=== PATIENT | female | born 1995 | race African-American/Black ===

== ENCOUNTER 2017-08-16 22:13 | Emergency (ER) | payer OTHER ==
[2017-08-16 22:51] VITALS: BP 110/75
== END 2017-08-17 02:05 | disposition admitted as inpatient to this hospital (09) ==
LOC: ERH 22:13
DX: T78.49XA Other allergy, initial encounter (principal)

== ENCOUNTER 2017-11-02 17:56 | Inpatient (IN) | payer OTHER ==
[~2017-11-02] VITALS: Ht 172.7 cm; Wt 97.5 kg
[2017-11-02 19:02] LABS: ABSOLUTE BASOPHIL COUNT 0 /CUMM (0.0-0.2); ABSOLUTE EOSINOPHIL COUNT 0 /CUMM (0.0-0.7); ABSOLUTE GRANULOCYTE CT 5.7 /CUMM (1.4-6.5); ABSOLUTE LYMPH COUNT 1.6 /CUMM (1.2-3.4); ABSOLUTE MONOCYTE COUNT 1.4 /CUMM (0.10-0.60); BASOPHIL % 0.2 % (0.0-2.0); EOSINOPHIL % 0.4 % (0-5); GRANULOCYTE % 65.3 % (42.2-75.2); MEAN CORPUSCULAR HGB 26.4 PG (27.0-31.0); MEAN CORPUSCULAR VOLUME 82.4 FL (81.0-99.0); MEAN PLATELET VOLUME 11.1 FL (7.4-10.4); PLATELET COUNT 146 /CUMM (130-400); RBC DISTRIBUTION WIDTH 13.8 % (11.5-14.5); RED BLOOD CELL CT 5.21 /CUMM (4.20-5.40); WHITE BLOOD CELL COUNT 8.8 /CUMM (4.8-10.8)
--- NOTE | 2017-11-02 20:52 | History & Physical ---
General Information and HPI MD Statement: I have seen and personally examined JUNE EVANGELISTA and documented this H&P. The patient is a 21 year old female at 38 weeks and 3 days gestation who presented with a chief complaint of intermittent headaches, visual changes, swelling and decreased movement. Source of Information: patient, old records Exam Limitations: no limitations History of Present Illness: Patient is a 21 year old female with complicated by excess weight gain who contacted the service with complaint of swelling in her hands. On arrival she stated that she didnt feel well today at work. She noted decreased movement and over the past few days intermittent headaches and blurry vision. Allergies/Medications Allergies: Coded Allergies: No Known Allergies (03/13/17) Compliance With Home Meds: GOOD Past History cfd engineer History : 1 Para: 0 Last Menstrual Period: 02/06/2017 Estimated Delivery Date: 11/13/17 Past cfd engineer History: none Medical History Blood Transfusion Hx: No Neurological: NONE EENT: NONE Cardiovascular: NONE Respiratory: NONE Gastrointestinal: NONE Hepatic: NONE Renal: NONE Musculoskeletal: NONE Psychiatric: NONE Endocrine: NONE Blood Disorders: NONE Cancer(s): NONE EDUCATIONAL PSYCHOLOGIST/Reproductive: NONE Other Medical Hx: na Surgical History Pertinent Surgical History: none Past Family/Social History Psychosocial History Where do you live? Home Who Do You Live With? parent Primary Language: Ghanaian Smoking Status: Never Smoked (Partner is smoker) ETOH Use: denies use Illicit Drug Use: denies illicit drug use Living Will? unknown Power of Reel Hooker/HCP? unknown Other Social History: na Employment History Employment Employed Review of Systems Review of Systems Constitutional: Denies: no symptoms. EENTM: Reports: blurred vision. Cardiovascular: Denies: no symptoms. Respiratory: Denies: no symptoms. GI: Denies: no symptoms. Genitourinary: Denies: no symptoms. Musculoskeletal: Denies: no symptoms. Skin: Denies: no symptoms. Neurological/Psychological: Reports: headache. Hematologic/Endocrine: Denies: no symptoms. Immunologic/Allergic: Denies: no symptoms. Date of LMP: 02/06/17 Post Menopausal: No Pap Smear Testing Status: Test never done Exam & Diagnostic Data Last 24 Hrs of Vital Signs/I&O BP range of 125-155/75-90 Obstetric Exam Wgt Gained During : 35 Pelvimetry: Gynecoid Dilation (cm): 1 Effacement (%): 50 Station: -2 Membranes: intact Fluid: Intact membranes Fundal Height (cm): 38 Multiple Gestation? No Contractions: Irregular q5-7 #1 - FHR Baseline: 140 Category: 1 Estimated Weight: 3500 grams Presentation: Cephalic Patient for Induction? Yes Stringer Score Stringer Score Response Value Cervix Position: posterior 0 Cervix Consistency: soft 2 Cervix Effacement: 30-50% 1 Cervix Dilation: 1-2 cm 1 Cervix Station: -2 1 Total 5 Physical Exam General Appearance Alert, Oriented X3, Cooperative, Mild Distress Skin No Rashes HEENT Atraumatic, PERRLA Neck Supple Cardiovascular Regular Rate Lungs Clear to Auscultation, Normal Air Movement Abdomen Normal Bowel Sounds, Soft, No Tenderness Neurological Normal Gait, Normal Speech, Strength at 5/5 X4 Ext, Normal Tone, Sensation Intact, Cranial Nerves 3-12 NL, Reflexes 2+ Extremities No Edema Vascular Pulses Symmetrical Breasts Breast appear nl Reproductive (FEMALE) Normal female genitalia Pelvic (FEMALE) Appearance Normal Labs Blood Type & Rh: O positive Antibody Screen: negative Hct/Hgb & Platelets #1: 37.1 Hct/Hgb & Platelets #2: 40.9/247 Rubella: immune VDRL #1: negative VDRL #2: negative HbsAg: negative HIV #1: negative HIV #2 negative 1 Hr P Group B Strep: Negative Initial Ultrasound: Wnl Anatomy Ultrasound: WNl Ultrasound for EFW: 3374 grams at 37w2d Genetic Testing: Declined testing Last 24 Hrs of Labs/Zac: Laboratory Tests 11/02/171826: Estimated GFR > 60, Uric Acid 4.1, AST 26, ALT 29, Lactate Dehydrogenase 535, CBC w Diff NO MAN DIFF REQ, RBC 5.21, MCV 82.4, MCH 26.4 L, MCHC 32.0 L, RDW 13.8, MPV 11.1 H, Gran % 65.3, Lymphocytes % 18.6 L, Monocytes % 15.5 H, Eosinophils % 0.4, Basophils % 0.2, Absolute Granulocytes 5.7, Absolute Lymphocytes 1.6, Absolute Monocytes 1.4 H, Absolute Eosinophils 0, Absolute Basophils 0 11/02/171824: Ur Random Creatinine 116.9, U Random Total Protein 45 H, Protein/Creatinin Ratio 0.3 H 05/18/18 1825: Urinalysis LIGHT H, Urine Color YEL, Urine Clarity CLEAR, Urine pH 6.0, Ur Specific [place] 1.025, Urine Protein 30 H, Urine Ketones NEG, Urine Nitrite NEG, Urine Bilirubin NEG, Urine Urobilinogen 0.2, Ur Leukocyte Esterase TRACE H , Ur Microscopic SEDIMENT EXAMINED, Urine WBC 3-5 H, Ur Epithelial Cells FEW, Urine Bacteria MANY H, Urine Hemoglobin NEG, Urine Glucose NEG Assessment/Plan Assessment/Plan: Patient is a 21 year old female with gestational hypertension vs mild preeclampsia. Patient with no symptoms of severe preeclampsia at present. Lab tests showing PC ratio of 0.3 and decreased platelets to 146k and hemoconcentration. No focal deficits on physical exam. Catagory 1 tracing and normal maximum vertical pocket on ultrasound of 5.3 cm. Plan Induction of labor secondary to mild preeclampsia. As she is not favorable I placed a cervical uriostegui and will evaluate if misoprostol is needed. Goal for shortening the induction to delivery time. Preeclampsia. I discussed with the patient the symptoms of same and the issues of same. I discussed that if she increases her BP she may need magnesium. If she has symptom return of prior than I will start on magnesium as well. Potential for BP medications up to 12 weeks. Monitor urine output. No findings of abruption at present and intact membranes. Repeat lab tests in am to assess trend of platelets. No LFT abnormalities noted. VTE risk reduction with alps SSI risk reduction with wipes Consent for vaginal obtained. Discussed pain mgmt strategies (Nitrous and or stadol and or epidural) Anticipate vaginal . As Ranked By This Provider Problem List: 1. Gestational hypertension Core Measures Venous Thromboembolism VTE Risk Factors / No Mechanical VTE Prophylaxis d/t N/A MechProphylax Ordered No VTE Pharm Prophylaxis d/t NA PharmProphylax ordered
--- NOTE | 2017-11-02 21:07 | PN- OBGYN ---
Surgical Brief Attending Note Brief Attending Note: 24 gabonese uriostegui placed transcervically without issue 30 cc saline placed Now eunice q4 minutes and feeling same. Catagory 1 tracing. If pattern decreases than start on misoprostol. At present will hold to avoid tachysystole.
--- NOTE | 2017-11-03 04:36 | PN- OBGYN ---
Surgical Brief Attending Note Brief Attending Note: Alerted by nursing that patient wants something for pain BP 136/82 Catagory 1 tracing Contractions q1-2 minutes Mckeon removed after 7 hours of placement 6-7/80/-1 Active labor No need for oxytocin Epidural requested for pain management Anticipate vaginal . GBBS negative
[2017-11-03 06:35] LABS: ABSOLUTE BASOPHIL COUNT 0 /CUMM (0.0-0.2); ABSOLUTE EOSINOPHIL COUNT 0 /CUMM (0.0-0.7); ABSOLUTE GRANULOCYTE CT 6.3 /CUMM (1.4-6.5); ABSOLUTE MONOCYTE COUNT 1.5 /CUMM (0.10-0.60); BASOPHIL % 0.2 % (0.0-2.0); EOSINOPHIL % 0.3 % (0-5); GRANULOCYTE % 58.5 % (42.2-75.2); HEMATOCRIT 43.3 % (37-47); MEAN CORPUSCULAR HGB 26.5 PG (27.0-31.0); MEAN CORPUSCULAR HGB CONC 32.4 G/DL (33.0-37.0); MEAN CORPUSCULAR VOLUME 81.9 FL (81.0-99.0); MEAN PLATELET VOLUME 11.3 FL (7.4-10.4); PLATELET COUNT 142 /CUMM (130-400); RBC DISTRIBUTION WIDTH 14.1 % (11.5-14.5); RED BLOOD CELL CT 5.28 /CUMM (4.20-5.40); WHITE BLOOD CELL COUNT 10.8 /CUMM (4.8-10.8)
--- NOTE | 2017-11-03 07:44 | PN- OBGYN ---
Surgical Brief Attending Note Brief Attending Note: Comfortable with epidural Now with SROM clear fluid Denies headaches Vitals 132/70 Catagory 1 tracing Contractions q2-3 7/100/-1 at 0600 Hct 43.3 and Platelets 141 LFT and creatinine are wnl Active labor with SROM for this patient with mild preeclampsia GBBS negative Repeat labs by 12 pm to 1 pm for stability. Anticipate vaginal
--- NOTE | 2017-11-03 07:55 | PN- OBGYN ---
Surgical Brief Attending Note Brief Attending Note: /-1 No molding Feeling pressure.
--- NOTE | 2017-11-03 10:35 | PN- OBGYN ---
Surgical Brief Attending Note Brief Attending Note: Feeling pressure 10 cm/0 to -1 station/no molding DAVID Catagory 2 to 1 tracing with position change. Scalp stimulation noted Allow to start pushing and reassess in one hour. Labor curve has not been protracted.
--- NOTE | 2017-11-03 11:28 | PN- OBGYN ---
Surgical Brief Attending Note Brief Attending Note: 10 cm/0+1 station with pushing Appreciate as OP. Catagory 1-2 tracing. Urine output adequate with uriostegui. Labs for 12-1 pm
--- NOTE | 2017-11-03 12:08 | PN- OBGYN ---
Surgical Brief Attending Note Brief Attending Note: Pushing with good effort and maternal exhaustion. FD/0 station caput to +1. Epidural was discontinued over one hour ago. Catagory 2 tracing. 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 Plan for csection. Contacted Dr Smith, Anesthesia, Dr Ugalde and preparations for same being made. Labs to be done at time of completion of case Preop meds and antibiotics Povidone prep to vagina as well Uterotonic hemabate and misoprostol. Consent for procedure obtained with risks of pain, infection, uterine atony and or bleeding, damage to local organs, vte, wound complications, ileus, future risk of previa and or accreta.
--- NOTE | 2017-11-03 14:01 | Operative Report ---
Operative/Inv Procedure Report Surgery Date: 11/03/17 Name of Procedure: LTCS Pre-Operative Diagnosis: Arrest of descent Mild preeclampsia Post-Operative Diagnosis: Same Estimated Blood Loss: 1000 cc Surgeon/Material Controller: Pantera Zamarripa Michael Anesthesia: general endotracheal tube Monitors: per Anesthesiology IV Fluids: 1000 Implants: NA Urine Output: 200 cc osiel color Drains: none Specimens: placenta and cord gases Microbiology: na Complications: none Condition: stable to RR Operative Indication: 21 year old female at 38w4d with mild preeclampsia and arrest of descent at 0 station with caput at +1 for primary csection. Operative/Procedure Note Note: Patient taken to the OR and prepped and draped in sterile fashion Time out completed prior to procedure. Uterotonics ready in anticipation of potential atony. As epidural level was not adequate so patient was given GET. Peds present at delivery. Phannensteil incision made and carried through to underlying layer of fascia. Rectus fascia was incised laterally and bluntly and sharply dissected. Peritoneum entered bluntly and bladder blade introduced. In anticipation of head in pelvis a vaginal hand was used to elevate the head at time of hysterotomy. Bladder peritoneum was bluntly and sharply dissected caudally. Bladder blade introduced and hysterotomy made. ROP noted. Hand used above and below and was able to displace the head. Two attempts made for same. It was the second attempt that allowed delivery of the head as was deflexed ROP. Nuchal loose x 2. Infant delivered with apgars of 1-8-9 Cord gases sent. PH 7.31 Placenta was removed with crede maneuver and oxytocin given intrauterine and IV. Hemabate was given as well for mild atony. 3 vessel intact placenta. Hysterotomy closed with 2 layers of O vircyl. Extension on the right side to broad ligament. No hematoma noted. Once uterus closed and was hemostatic placed in the abdominal cavity. Irrigated abdomen. Richard used as hemostatic agent in the hysterotomy incision. Tubes and ovaries and uterus wnl except for paratubal cyst of 1 cm on the right. Peritoneum draped over the uterus and muscle brought together with 3-0 vicryl. Fascia closed with O-Vircryl. Subcutuneous tissue closed with 3-0 pain and sudeep for skin. uterus firm and clots expressed. IV Ofermev given in the OR. Extubated in OR and to RR in stable condition. was in the DR to Nursery in stable condition. Instrument and lap count correct x 2. Abdomen and vagina were prepped prior to surgery.
[2017-11-03 14:39] LABS: ABSOLUTE BASOPHIL COUNT 0 /CUMM (0.0-0.2); ABSOLUTE EOSINOPHIL COUNT 0 /CUMM (0.0-0.7); ABSOLUTE GRANULOCYTE CT 8.4 /CUMM (1.4-6.5); ABSOLUTE MONOCYTE COUNT 1.4 /CUMM (0.10-0.60); BASOPHIL % 0.1 % (0.0-2.0); EOSINOPHIL % 0.1 % (0-5); GRANULOCYTE % 77.9 % (42.2-75.2); HEMATOCRIT 41.9 % (37-47); MEAN CORPUSCULAR HGB 26.6 PG (27.0-31.0); MEAN CORPUSCULAR HGB CONC 32.3 G/DL (33.0-37.0); MEAN CORPUSCULAR VOLUME 82.5 FL (81.0-99.0); MEAN PLATELET VOLUME 11.2 FL (7.4-10.4); RBC DISTRIBUTION WIDTH 14.1 % (11.5-14.5); RED BLOOD CELL CT 5.08 /CUMM (4.20-5.40); WHITE BLOOD CELL COUNT 10.8 /CUMM (4.8-10.8)
[2017-11-03 14:50] LABS: PLATELET COUNT 133 /CUMM (130-400)
--- NOTE | 2017-11-03 19:29 | PN- OBGYN ---
Surgical Brief Attending Note Brief Attending Note: I alerted patient postoperatively that may need BP medications I alerted her that I would be assessing serial labs to check platelets I will repeat labs at 2100 hours. BP 148/100. I will start on labetalol 100 mg BID Urine output was 1400 cc since surgery so robust diuresis.
[2017-11-03 22:44] LABS: ABSOLUTE BASOPHIL COUNT 0 /CUMM (0.0-0.2); ABSOLUTE EOSINOPHIL COUNT 0 /CUMM (0.0-0.7); ABSOLUTE LYMPH COUNT 1.3 /CUMM (1.2-3.4); ABSOLUTE MONOCYTE COUNT 1.7 /CUMM (0.10-0.60)
[2017-11-03 22:53] LABS: ABSOLUTE GRANULOCYTE CT 16.7 /CUMM (1.4-6.5); BASOPHIL % 0 % (0.0-2.0); EOSINOPHIL % 0 % (0-5); HEMATOCRIT 39.1 % (37-47); MEAN CORPUSCULAR HGB 26.6 PG (27.0-31.0); MEAN CORPUSCULAR HGB CONC 32.3 G/DL (33.0-37.0); MEAN CORPUSCULAR VOLUME 82.5 FL (81.0-99.0); MEAN PLATELET VOLUME 10.2 FL (7.4-10.4); PLATELET COUNT 124 /CUMM (130-400); RBC DISTRIBUTION WIDTH 13.9 % (11.5-14.5); RED BLOOD CELL CT 4.74 /CUMM (4.20-5.40)
[2017-11-03 22:54] LABS: WHITE BLOOD CELL COUNT 19.7 /CUMM (4.8-10.8)
[2017-11-03 23:03] LABS: GRANULOCYTE % 84.8 % (42.2-75.2)
[2017-11-04 09:07] LABS: ABSOLUTE BASOPHIL COUNT 0 /CUMM (0.0-0.2); ABSOLUTE EOSINOPHIL COUNT 0 /CUMM (0.0-0.7); ABSOLUTE GRANULOCYTE CT 16.1 /CUMM (1.4-6.5); ABSOLUTE LYMPH COUNT 1.6 /CUMM (1.2-3.4); ABSOLUTE MONOCYTE COUNT 1.6 /CUMM (0.10-0.60); BASOPHIL % 0 % (0.0-2.0); EOSINOPHIL % 0.1 % (0-5); GRANULOCYTE % 83.2 % (42.2-75.2); HEMATOCRIT 36.9 % (37-47); MEAN CORPUSCULAR HGB 26.7 PG (27.0-31.0); MEAN CORPUSCULAR HGB CONC 32.2 G/DL (33.0-37.0); MEAN PLATELET VOLUME 11.5 FL (7.4-10.4); PLATELET COUNT 125 /CUMM (130-400); RBC DISTRIBUTION WIDTH 14.2 % (11.5-14.5); RED BLOOD CELL CT 4.44 /CUMM (4.20-5.40)
--- NOTE | 2017-11-04 09:08 | PN- Post Delivery/GYN ---
Subjective Subjective: Feels hot States difficult to void Pain is controlled Denies headaches Denies visual changes Review of Systems: As in subjective Review of Systems Constitutional: Denies: no symptoms. EENTM: Denies: no symptoms. Cardiovascular: Denies: no symptoms. Respiratory: Denies: no symptoms. Gastrointestinal: Denies: no symptoms. Genitourinary: Denies: no symptoms. Musculoskeletal: Denies: no symptoms. Skin: Denies: no symptoms. Neurological/Psychological: Denies: no symptoms. Hematologic/Endocrine: Denies: no symptoms. Immunologic/Allergic: Denies: no symptoms. Objective Last 24 Hrs of Vital Signs/I&O Vital Signs Date Time Temp Pulse Resp B/P B/P Pulse O2 O2 Flow FiO2 Mean Ox Delivery Rate 11/04 0856 112 130/90 11/03 2058 98.3 101 16 138/80 Physical Exam General Appearance Alert, Oriented X3, Cooperative, No Acute Distress Skin No Rashes Neck Supple Cardiovascular Regular Rate Lungs Clear to Auscultation, Normal Air Movement Abdomen Normal Bowel Sounds, Soft, Mild distended Neurological Normal Gait, Normal Speech, Strength at 5/5 X4 Ext, Normal Tone, Reflexes 2+ Extremities No Edema Vascular Normal Pulses Breasts Breast appear nl Current Medications: Current Medications Sig/Antonio Start time Last Medication Dose Route Stop Time Status Admin Acetaminophen 1,000 MG Q6H 11/03 1900 DC 11/04 IV 11/04 0701 0105 Acetaminophen 1,000 MG Q6 11/03 1800 DC IV 11/04 0601 Ascorbic Acid 500 MG DAILY 11/04 0900 AC 11/04 PO 0856 Butorphanol Tartrate 1 MG Q4P PRN 11/02 2115 DC IV Carboprost 250 MCG ONE ONE 11/03 1415 DC 11/03 Tromethamine IM 11/03 1416 1305 Cefazolin Sodium 2 GM ONCE ONE 11/03 1215 DC 11/03 N/A 1 UNIT IV 11/03 1244 1215 Cholecalciferol 1,000 IU DAILY 11/04 0900 AC 11/04 PO 0856 Citric Acid/Sodium 30 ML .STK-MED ONE 11/03 1204 DC Citrate PO 11/03 1205 Diphenhydramine HCl 25 MG Q6P PRN 11/03 1630 AC IV Docusate Sodium 100 MG AT BEDTIME PRN 11/04 0715 AC PO Enoxaparin Sodium 40 MG DAILY 11/04 0900 DC SC Enoxaparin Sodium 40 MG DAILY@0200 11/04 0200 AC 11/04 SC 0105 Fentanyl Citrate 100 MCG .STK-MED ONE 11/03 1323 DC IM 11/03 1324 Fentanyl Citrate 100 MCG .STK-MED ONE 11/03 1258 DC IM 11/03 1259 Ibuprofen 600 MG Q6P PRN 11/04 0715 AC 11/04 PO 0709 Ketorolac 30 MG Q6P PRN 11/03 2230 AC Tromethamine IV 11/04 2229 Ketorolac 30 MG ONE ONE 11/03 1630 DC Tromethamine IV 11/03 1631 Labetalol HCl 100 MG BID 11/03 2100 AC 11/04 PO 0856 Lactated Ringer's 1,000 ML .[id number] 11/03 2245 AC 11/03 IV 2237 Lactated Ringer's 1,000 ML Q8H 11/02 2030 DC 11/03 IV 1020 Lidocaine 1 PAT DAILY 11/04 0900 AC 11/04 EXT 0709 Metoclopramide HCl 10 MG Q6P PRN 11/03 1630 AC IV Morphine Sulfate 10 MG .STK-MED ONE 11/03 1216 DC IV 11/03 1217 Naloxone HCl 0.2 MG .Q5MIN PRN 11/03 1630 AC IV Oxycodone/ 1 TAB Q4P PRN 11/04 0715 AC 11/04 Acetaminophen PO 0709 Oxycodone/ 2 TAB Q4P PRN 11/04 0715 AC Acetaminophen PO Oxytocin 20 UNITS Q8H 11/03 1415 DC 11/03 Lactated Ringer's 1,000 ML IV 11/03 2214 1350 Oxytocin 10 UNITS .STK-MED ONE 11/03 1219 DC IM 11/03 1220 Simethicone 80 MG .STK-MED ONE 11/04 0019 DC PO 11/04 0020 Simethicone 80 MG Q8P PRN 11/03 1415 AC 11/04 PO 0105 Last 24 Hrs of Labs/Zac: Laboratory Tests 11/04/17 0540: CBC w Diff Pending, WBC Pending, RBC Pending, Hgb Pending, Hct Pending, MCV Pending, MCH Pending, MCHC Pending, RDW Pending, Plt Count Pending, MPV Pending 11/03/17 2230: Estimated GFR > 60, Uric Acid 4.2, AST 44 H, ALT 22, Lactate Dehydrogenase 1398 H, CBC w Diff NO MAN DIFF REQ, RBC 4.74, MCV 82.5, MCH 26.6 L, MCHC 32.3 L, RDW 13.9, MPV 10.2, Gran % 84.8 H, Lymphocytes % 6.6 L, Monocytes % 8.6, Eosinophils % 0, Basophils % 0, Absolute Granulocytes 16.7 H, Absolute Lymphocytes 1.3, Absolute Monocytes 1.7 H, Absolute Eosinophils 0, Absolute Basophils 0 11/03/17 2210: Urinalysis MOD H, Urine Color YVROSE, Urine Clarity HAZY H, Urine pH 5.5, Ur Specific [place] 1.025, Urine Protein 30 H, Urine Ketones NEG, Urine Nitrite NEG, Urine Bilirubin NEG, Urine Urobilinogen 1.0, Ur Leukocyte Esterase TRACE H , Ur Microscopic SEDIMENT EXAMINED, Urine RBC >75 H, Urine WBC 15-25 H, Ur Epithelial Cells FEW, Urine Bacteria MOD H, Urine Mucus FEW, Urine Hemoglobin LARGE H, Urine Glucose NEG 11/03/17 1420: Urine Color YEL, Urine Clarity CLEAR, Urine pH 7.0, Ur Specific [place] <= 1.005 , Urine Protein NEG, Urine Ketones NEG, Urine Nitrite NEG, Urine Bilirubin NEG, Urine Urobilinogen 0.2, Ur Leukocyte Esterase NEG, Ur Microscopic SEDIMENT EXAMINED, Urine RBC 1-3, Ur Epithelial Cells FEW, Urine Hemoglobin MOD H, Urine Glucose NEG 11/03/17 1400: Estimated GFR > 60, Uric Acid 4.2, AST 28, ALT 25, Lactate Dehydrogenase 659 H, CBC w Diff NO MAN DIFF REQ, RBC 5.08, MCV 82.5, MCH 26.6 L, MCHC 32.3 L, RDW 14.1, MPV 11.2 H, Gran % 77.9 H, Lymphocytes % 9.4 L, Monocytes % 12.5 H, Eosinophils % 0.1, Basophils % 0.1, Absolute Granulocytes 8.4 H, Absolute Lymphocytes 1.0 L, Absolute Monocytes 1.4 H, Absolute Eosinophils 0, Absolute Basophils 0 11/03/17 1300: CBC w Diff Cancelled, WBC Cancelled, RBC Cancelled, Hgb Cancelled, Hct Cancelled , MCV Cancelled, MCH Cancelled, MCHC Cancelled, RDW Cancelled, Plt Count Cancelled, MPV Cancelled Imaging Findings: na Assessment/Plan Assessment/Plan Pod#1 for this patient with preeclampsia without severe features s/p LTCS for arrest of descent. Cardiac. Started on labetalol for control of BP. Overall BP now less than 150/ 100. This is target goal. Will need follow up to assess continuation or not Heme. Follow up morning cbc to assess platelets. Levels were 146 and last 124. Doubt active bleeding however may still be residual hemolysis related from preeclampsia. If still falling will hold on motrin. GI. Advance diet. Simethicone as needed for bloating. Recommend natasha tea. VTE prophylaxis. Did get am lovenox. Risks for same being , preeclampsia and csection. Renal. Excellent diuresis noted. More likely the discomfort with urination is from the uriostegui having been just removed. Will follow and dermoplast to area as needed. Wound care instructions and expectations reviewed. Breast feeding counseling provided. Problem List: 1. Thrombocytopenia 2. Transient hypertension during , Attending MD Review Statement Attending Statement Attending MD Statement: examined this patient, discussed with nursing Attending Assessment/Plan: as noted
[2017-11-04 10:25] LABS: WHITE BLOOD CELL COUNT 19.3 /CUMM (4.8-10.8)
--- NOTE | 2017-11-04 10:58 | PN- OBGYN ---
Surgical Brief Attending Note Brief Attending Note: Hct 36.9 and platelets stable at 125. Ldh was elevated and consistant with hemolysis. Denies RUQ pain and repeat levels in the pm
[2017-11-04 20:08] LABS: ABSOLUTE BASOPHIL COUNT 0 /CUMM (0.0-0.2); ABSOLUTE EOSINOPHIL COUNT 0 /CUMM (0.0-0.7); ABSOLUTE GRANULOCYTE CT 13.7 /CUMM (1.4-6.5); ABSOLUTE LYMPH COUNT 1.5 /CUMM (1.2-3.4); ABSOLUTE MONOCYTE COUNT 1.7 /CUMM (0.10-0.60); BASOPHIL % 0.1 % (0.0-2.0); EOSINOPHIL % 0.3 % (0-5); GRANULOCYTE % 80.5 % (42.2-75.2); HEMATOCRIT 34.9 % (37-47); MEAN CORPUSCULAR HGB CONC 32.8 G/DL (33.0-37.0); MEAN CORPUSCULAR VOLUME 82.5 FL (81.0-99.0); MEAN PLATELET VOLUME 10.9 FL (7.4-10.4); PLATELET COUNT 140 /CUMM (130-400); RBC DISTRIBUTION WIDTH 13.9 % (11.5-14.5); RED BLOOD CELL CT 4.22 /CUMM (4.20-5.40)
[2017-11-06] MEDS ORDERED: IBUPROFEN600 M1 PO (09:01)
[2017-11-06] MEDS ORDERED: DOCUSATE SODIU100 M3 PO (09:01)
[2017-11-06] MEDS ORDERED: PERCOCET 5-3251 EACH PO (09:01)
[2017-11-06] MEDS ORDERED: LABETALOL HCL100 M1 PO (09:01)
[2017-11-06 10:03] VITALS: BP 130/78
--- NOTE | 2017-11-08 13:20 | Surgical Discharge Summary ---
Visit Information Visit Dates Admission Date: 11/02/17 Discharge Date: 11/06/17 History of Present Illness Chief Complaint: Decreased movement Blurry vision Headache Medical History Blood Transfusion Hx: No Neurological: NONE EENT: NONE Cardiovascular: NONE Respiratory: NONE Gastrointestinal: NONE Hepatic: NONE Renal: NONE Musculoskeletal: NONE Psychiatric: NONE Endocrine: NONE Blood Disorders: NONE Cancer(s): NONE WINDOW CLEANER/Reproductive: NONE Other Medical Hx: na History of MRSA: No History of VRE: No History of CDIFF: No Isolation History: Standard Pneumonia Vaccine Status: Never received in past Influenza Vaccine Status Unknown if ever received Surgical History Pertinent Surgical History: none Psychosocial History Where Do You Live? Home Who Do You Live With? Family Services at Home: None What is Your Primary Language? [place] Tobacco History: Patient nonsmoker ETOH Use: denies use Illicit Drug Use History: na Other Addictive Behavior: na Review of Systems: Denies headache Denied visual changes Denied RUQ pain Physical Exam: Aox3 NAD Lungs clear Abdomen soft and wound intact with sudeep Fundus firm and no cvat No periphernal edema Hospital Course Course Attending Physician: Dallin HARRELL,Pantera Primary Care Physician: Patient Has No Primary Care Dr Hospital Course: S/p induction of labor for preeclampsia. Failed induction as arrest of descent with LGA fetus that was malrotation. started on beta blockers for HTN and serial lab tests done as developed HEELP syndrome which resolved. Complications: None Allergies: Coded Allergies: No Known Allergies (03/13/17) Significant Procedures: LTCS Pertinent Lab Results: Hct stabilized Plt count stabilized LDH decreased after initial rise Liver function tests normalized. Disposition Summary Disposition Principal Diagnosis: Preeclampsia Additional Diagnosis: HEELP syndrome Failed induction of labor Discharge Disposition: home or self care Discharge Instructions General Discharge Information Code Status: Full Code Patient's Diet: Regular Patient's Activity: As tolerated Follow-Up Instructions/Appts: 2-3 days with CBC for BP check and check 7-10 days for BP check and wound check with Dr Michel Medications at Discharge Discharge Medications: Start taking the following new medications: Labetalol HCl (Labetalol HCl) 100 MG TABLET 100 Milligram ORAL TWICE DAILY Qty = 60 No Refills Ibuprofen (Ibuprofen) 600 MG TABLET 600 Milligram ORAL EVERY SIX HOURS NEEDED as needed for UTERINE CRAMPING Qty = 36 No Refills Oxycodone HCl/Acetaminophen (Percocet 5-325 MG Tablet) 5 MG-325 MG TABLET 1 Tablet ORAL EVERY 4 HOURS NEEDED as needed for PAIN SCALE 4-6 (MODERATE ) Qty = 20 No Refills Docusate Sodium (Docusate Sodium) 100 MG CAPSULE 100 Milligram ORAL AT BEDTIME as needed for STOOL SOFTENER Qty = 60 No Refills Copies To: Deanna Contreras MD,Chuck Attending MD Review Statement Attending Statement Attending MD Statement: examined this patient (Last encounter was 11/04/17) Attending Assessment/Plan: As outlined. Patient dc'd by Dr Michel. I cared for patient from 11/02/17 to 11/04/17
== END 2017-11-06 12:15 | DRG 540 ==
LOC: CBCO 17:56 → GNO 20:04
PROVIDERS: Obstetrics & Gynecology
PROC: 10D00Z1 Extraction of Products of Conception, Low, Open Approach (ICD-10-PCS; principal; 2017-11-03)
DX: O14.94 Unspecified pre-eclampsia, complicating childbirth (principal); Z3A.38 38 weeks gestation of pregnancy; Z37.0 Single live birth; O62.1 Secondary uterine inertia; O72.3 Postpartum coagulation defects; D69.6 Thrombocytopenia, unspecified; O13.5 Gestational [pregnancy-induced] hypertension without significant proteinuria, complicating the puerperium
CPT/HCPCS: GNOP; GNOS; 36415; 81001; 82570; 87086; J0131; J0690; J1200; J1650; J7120